=== PATIENT | female | born 1935 | race Caucasian/White ===

== ENCOUNTER 2017-06-06 16:42 | Observation (INO) | payer MEDICARE, OTHER ==
[~2017-06-06 16:42] MED LIST: ISOVUE-370 76%-LOCM 1 ML ONE
[2017-06-06] MEDS ORDERED: Lidocaine Viscous Sol 2% 15 ml UD Cup ONE (17:11)
[2017-06-06] MEDS ORDERED: Mag-Al 1200 mg/1200 mg/30 ML UDCUP ONE (17:11)
[2017-06-06] MEDS ORDERED: Famotidine 20 MG TAB ONE (17:11)
[2017-06-06] MEDS ORDERED: Ondansetron HCl/PF 4 MG/2 ML Vial ONE ×2 (17:13→18:15)
--- NOTE | 2017-06-06 17:57 | RAD ---
1 VIEW CHEST: Date: 06/06/17 HISTORY: Chest pain. COMPARISON: None. FINDINGS: Magnification of cardiac silhouette in part due to portable technique. Pulmonary vessels and hilum ar e normal. Costophrenic angles are clear. Lungs are hyperinflated. No masses or consolidation. No pneu mothorax or osseous abnormalities. There is rightward deviation of the trachea. The possibility of a mediastinal mass cannot be excluded . IMPRESSION: Rightward deviation of the trachea. The possibility of a mediastinal mass cannot be excluded. [facility] chest CT is recommended. . POS: [facility]
[2017-06-06] MEDS ORDERED: Nitroglycerin 2% Ointment 1 INCH/1 GM Packet ONE (18:15)
[2017-06-06 18:30] LABS: #Eosinphils 0.2 thou/uL (0.0-0.7); #Lymphocytes 0.9 thou/uL (1.20-3.40); #Monocytes 0.4 thou/uL (0.11-0.59); #Neutrophils 7.6 thou/uL (1.40-6.50); %Basophils 0.2 % (0.0-1.0); %Eosinophils 1.9 % (0.0-10.0); %Lymphocytes 9.5 % (21.0-51.0); %Monocytes 4.7 % (0.0-10.0); %Neutrophils 83.7 % (42.0-75.0); Hemoglobin 12.3 g/dL (12.0-16.0); Mean Corpuscular HGB CONC 33.9 g/dL (32.0-36.0); Mean Corpuscular Hemoglobin 31.5 pg (27.0-31.0); Mean Corpuscular Volume 92.7 fl (81.0-99.0); Mean Platelet Volume 6.2 fL (7.4-10.4); Platelet Count 208 thou/uL (130-400); White Blood Cell (WBC) Count 9.1 thou/uL (4.8-10.8)
[2017-06-06 18:37] LABS: INR-International Normal Ratio 1.6; PTT 30.1 SEC (22.9-36.1); Prothrombin Time 19.5 SEC (12.0-14.7)
[2017-06-06 18:46] LABS: ALT (SGPT) 20 U/L (8-55); AST (SGOT) 25 U/L (5-34); Albumin 4.1 g/dL (3.4-4.8); Alkaline Phosphatase 66 U/L (40-150); Anion Gap 14 mmol/L (10-20); BUN (Urea Nitrogen) 28 mg/dL (9.8-20.1); Bilirubin, Total 0.6 mg/dL (0.2-1.2); CK (CPK) 48 U/L (29-168); Calc. Creatinine Clearance 0 mL/min (70-130); Calcium 9.9 mg/dL (7.8-10.44); Carbon Dioxide 28 mmol/L (23-31); Chloride 101 mmol/L (98-107); Estimated GFR-MDRD 58; Globulin 2.8 g/dL (2.4-3.5); Glucose 133 mg/dL (83-110); Lipase 343 U/L (8-78); Potassium 4.2 mmol/L (3.5-5.1); Protein, Total 6.9 g/dL (6.0-8.3); Sodium 139 mmol/L (136-145)
[2017-06-06 18:49] LABS: CKMB 1.8 ng/mL (0-6.6); Troponin I Less than 0.010 ng/mL (< 0.028)
[2017-06-06] MEDS ORDERED: Promethazine HCl 25 MG/ML VIAL SLOW IVP PRN (21:22)
[2017-06-06] MEDS ORDERED: Sodium Chloride 0.9% 1,000 ML IV SCH (21:30)
[2017-06-06] MEDS ORDERED: Ondansetron HCl/PF 4 MG/2 ML Vial IVP PRN (21:56)
[2017-06-06] MEDS ORDERED: Ondansetron ODT 8 MG TAB SL PRN (21:56)
[2017-06-06] MEDS ORDERED: Morphine 10 MG/ML CARPUJECT SLOW IVP PRN (22:41)
--- NOTE | 2017-06-06 23:17 | CT ---
CHEST CT WITH CONTRAST ABDOMEN CT WITH CONTRAST PELVIC CT WITH CONTRAST: Date: 06/06/17 HISTORY: Pancreatitis. Rightward deviation of the trachea. COMPARISON: None. TECHNIQUE: Chest, abdomen, and pelvis CT are performed with IV contrast. Coronal reformatted images are submitte d for interpretation. FINDINGS: CHEST CT: There is no mediastinal mass, lymphadenopathy, or hematoma. Heart size is within normal limits. No pe ricardial effusion. The thoracic aorta and abdominal aorta have normal caliber. No periaortic fat str anding. The thoracic esophagus is air-filled and distended. There is evidence of oral contrast in the mid to distal thoracic esophagus which may be due to reflux. Emphysematous changes in the lung apices. Right upper lobe is smaller than the contralateral upper lo be. There are linear opacities in the right lower lobe, which may represent atelectasis or scar. No s uspicious masses or consolidation. Small left-sided pleural effusion. No pneumothorax. 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 ABDOMEN/PELVIS CT: Dilatation of the intra and extrahepatic biliary system due to surgically absent gallbladder. Intra a nd extrahepatic portal vein is patent. Limited evaluation of the abdominal structures due to patient motion. The liver, spleen, and adrenal glands have appropriate enhancement. There is appropriate enhancement of the kidneys. No evidence of peripancreatic inflammatory change. No gastrohepatic, retrocrural, or periportal lymphadenopathy. No mesenteric mass, lymphadenopathy, free air, or free fluid. Symmetric enhancement of the kidneys. No definite obstructive uropathy. Gastric mucosa, duodenum, and small bowel loops are unremarkable. Note, the duodenum does not appear to cross midline. Congenital variant is favored. The cecal apex appears to be in the right lower quad rant. Suggestion of an air-filled appendix. No evidence of small bowel obstruction. Copious amount of fecal material throughout the colon. Correlate for constipation. There is diverticulosis in the sigm oid colon. No becca evidence of diverticulitis. Significant fecal material in the rectum. There is mi ld perirectal edema. Correlate for stercoral colitis. Urinary bladder is unremarkable. Indeterminate compression fracture at the T11 level. There does appear to be some paraspinal hematoma . Leftward curvature of the lumbar spine. IMPRESSION: 1. Significant constipation. Correlate for stercoral colitis. 2. 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 3. Chronic changes in the right lung base. 4. Indeterminate, likely subacute compression fracture at the T11 level. 5. No evidence of a thoracic or abdominal aortic dissection. Results of study discussed with Dr. Ewing on 06/06/17 at 2305 hours. CODE CR. POS: [facility]
[2017-06-07] MEDS ORDERED: Mag-Al 1200 mg/1200 mg/30 ML UDCUP PO PRN (00:28)
[2017-06-07] MEDS ORDERED: Docusate 100 MG CAP PO PRN (00:28)
[2017-06-07] MEDS ORDERED: Milk Of Magnesia 30 ML UDCUP PO PRN (00:28)
[2017-06-07] MEDS ORDERED: Bisacodyl 10 MG SUPP PR ONE (00:28)
[2017-06-07] MEDS ORDERED: Senokot 8.6 MG TAB PO SCH (00:30)
[2017-06-07 01:15] LABS: Troponin I Less than 0.010 ng/mL (< 0.028)
--- NOTE | 2017-06-07 01:16 | HP-2 ---
DATE OF ADMISSION: 06/06/2017. CODE STATUS: FULL. PRIMARY CARE PHYSICIAN: Randolph earl. ATTENDING: Betsy Lester MD RESIDENT: Dr. Kevin Whitten. HISTORIAN: Patient. CHIEF COMPLAINT: Chest pain. HISTORY OF PRESENT ILLNESS: This is a pleasant 82-year-old female with a past medical history of atrial fibrillation, on Xarelto and scoliosis who presents with chest pain described as a horizontal band-like pressure across her left and right chest. She also describes it as tightness in that band-like pattern and this started earlier today at noon when she was eating lunch. She says that usually she gets scoliosis pain that is just on the right chest, but this pain was different and was worse as it radiated across her chest to her back. When she got to the ER, she was given a nitroglycerin patch and aspirin, which she said helped her pain. She also endorses nausea, vomiting, some midepigastric pain, and shortness of breath. In ER, she received 324 mg of aspirin and a nitroglycerin patch. PAST MEDICAL HISTORY: 1. Scoliosis. 2. Atrial fibrillation. 3. Hypothyroidism. 4. Benign tremor. 5. Hypertension. 6. Hyperlipidemia. PAST SURGICAL HISTORY: 1. Cautery for varicose veins. 2. Hysterectomy. 3. Tonsillectomy. ALLERGIES: PENICILLIN. MEDICATIONS: 1. Lipitor 10 mg daily. 2. Synthroid 25 mcg daily. 3. Xarelto 20 mg daily. 4. Aspirin half a tab of 81 mg daily. 5. Ramipril 2.5 mg daily. 6. Propranolol 40 mg t.i.d. 7. Myrbetriq. 8. Colace p.r.n. 9. Calcium. 10. Biotin. 11. Tramadol. FAMILY HISTORY: None. SOCIAL HISTORY: Denies tobacco, alcohol, or drug use. REVIEW OF SYSTEMS: General: Denies fevers, chills. HEENT: Denies vision changes. Nasal congestion. Respiratory: Denies cough, congestion. Endorses shortness of breath. Cardiovascular: Endorses chest pain/pressure. Denies palpitations or edema. Gastrointestinal: Endorses nausea, vomiting. Endorses midepigastric pain. Genitourinary: Denies incontinence, dysuria. Musculoskeletal: Endorses musculoskeletal pain across her chest. Neurologic: Denies weakness, numbness. Psychiatric: Denies anxiety, depression. PHYSICAL EXAMINATION: VITAL SIGNS: Blood pressure 124 to 162/59 to 91, pulse 61-75, respiratory rate 14-17, T-max 98.2, pulse ox 99% on room air, current weight 44 kilos. GENERAL: Alert, oriented x4, no apparent distress, thin, appropriately interactive. HEENT: PERRLA. EOMI. Nasal mucosa and oropharynx within normal limits. NECK: Supple. No lymphadenopathy, thyromegaly, or bruits. CARDIOVASCULAR: Regular rate and rhythm. No murmurs, rubs, or gallops. 2+ pedal pulses bilaterally. RESPIRATORY: Normal effort. No retractions. Clear to auscultation bilaterally. SKIN: Warm and dry. ABDOMEN: Soft. Midepigastric and left upper quadrant tenderness. Positive bowel sounds in all 4 quadrants. No masses or distention. EXTREMITIES: No clubbing, cyanosis, or edema. MUSCULOSKELETAL: Structurally within normal limits. Tone within normal limits. NEUROLOGIC: No focal deficits. Cranial nerves II-XII intact. GCS 15. PSYCHIATRIC: Appropriate. LABORATORY DATA: CBC: 9.1, 12.3, 36.2, 208. CMP: 139, 4.2, 101, 28, 28, 0.93, 133. AST, ALT, alkaline phosphatase: 25, 20, 66. Calcium, total protein, albumin: 9.9, 6.9, 4.1. T bili is 0.6. Troponin I is less than 0.010. CK-MB 1.8, CK 48. Lipase is 343. Prothrombin is 19.5. EKG: NSR. Chest x-ray: Rightward deviation of the trachea. Possible mediastinal mass. ASSESSMENT AND PLAN: This is an 82-year-old female with a past medical history of atrial fibrillation and scoliosis, who presents with atypical chest pain, nausea, vomiting, and mid epigastric pain, who was found to have an elevated lipase of 343 and admitted for suspected pancreatitis, possible mediastinal mass , and atypical chest pain. 1. Suspected pancreatitis. This is likely the cause of her pain as she described her pain as a band-like pressure across her chest in the mid epigastric region that radiated to her back and with a lipase of 343 and also with a history of nausea and vomiting. The patient was admitted to inpatient tele and was made n.p.o., and we provided her with IV fluids at 125 mL per hour of normal saline. We ordered a CT abdomen as well as a CT chest and will follow up on those results. We will provide pain control with morphine 2 mg q.2 hours p.r.n. and we will keep the patient n.p.o. at this time to provide bowel rest. 2. Atypical chest pain. This chest pain seems to be due to pancreatitis; however, we will trend her troponins. She had a heart score of 3 and thus making her not a candidate for stress in the morning. 3. Possible mediastinal neck mass. A chest CT has been ordered with contrast to further evaluate, which may be worsening the pain. 4. Atrial fibrillation. We will restart her Xarelto and propranolol. 5. Scoliosis. We will provide pain control as needed for her pain. 6. Hypothyroidism. We will continue her home medications and check a TSH. DISPOSITION AND LENGTH OF HOSPITAL STAY: 2-3 days. Symptomatic medications will be provided. History and physical exam as well as management discussed with Dr. Lester. JERRY
[2017-06-07 03:53] LABS: #Eosinphils 0.1 thou/uL (0.0-0.7); #Monocytes 0.4 thou/uL (0.11-0.59); #Neutrophils 3.2 thou/uL (1.40-6.50); %Basophils 0.8 % (0.0-1.0); %Eosinophils 1.5 % (0.0-10.0); %Lymphocytes 21.3 % (21.0-51.0); %Monocytes 7.6 % (0.0-10.0); %Neutrophils 68.9 % (42.0-75.0); Mean Corpuscular Hemoglobin 31.3 pg (27.0-31.0); Mean Platelet Volume 6.1 fL (7.4-10.4); Platelet Count 175 thou/uL (130-400); RBC Distribution Width 11.9 % (11.5-14.5); Red Blood Cell (RBC) Count 3.18 mill/uL (4.20-5.40); White Blood Cell (WBC) Count 4.6 thou/uL (4.8-10.8)
[2017-06-07 04:14] LABS: Anion Gap 10 mmol/L (10-20); BUN (Urea Nitrogen) 25 mg/dL (9.8-20.1); Calc. Creatinine Clearance 0 mL/min (70-130); Calcium 8.7 mg/dL (7.8-10.44); Carbon Dioxide 27 mmol/L (23-31); Chloride 103 mmol/L (98-107); Estimated GFR-MDRD 79; Glucose 92 mg/dL (83-110); Potassium 4.2 mmol/L (3.5-5.1); Sodium 136 mmol/L (136-145)
--- NOTE | 2017-06-07 08:50 | PDOC.FM ---
- Subjective Subjective: Patient doing well this morning. She rested overnight with no acute events. Vital signs stable, patient is afebrile. Abdominal/Chest pain has resolved. - Objective MAR Reviewed: Yes Result Diagrams: 06/07/17 03:39 06/07/17 03:39 <Tate Griffin - Last Filed: 06/07/17 08:47> - Objective Result Diagrams: 06/07/17 03:39 06/07/17 03:39 <Andi العلي - Last Filed: 06/07/17 11:29> Phys Exam - Physical Examination Constitutional: NAD HEENT: moist MMs Neck: supple, full ROM Respiratory: no wheezing, no rales Cardiovascular: RRR, no significant murmur Gastrointestinal: soft, non-tender, no distention Neurological: moves all 4 limbs Psychiatric: normal affect, A&O x 3 Skin: no rash <Tate Griffin - Last Filed: 06/07/17 08:47> Dx/Plan (1) Pancreatitis Code(s): K85.90 - ACUTE PANCREATITIS WITHOUT NECROSIS OR INFECTION, UNSP Status: Suspected QualifierTitle: Chronicity: acute Plan: s/p cholecystectomy Lipase of 343 on admission No prior history of pancreatitis Pain has resolved and she deneis N/V CT not consistent with pancreatitis Remain NPO for now Morphine for pain control (2) Atypical chest pain Code(s): R07.89 - OTHER CHEST PAIN Status: Acute Plan: Chief complaint is vague but concerning for cardiac etiology Stress test this AM (3) Atrial fibrillation Code(s): I48.91 - UNSPECIFIED ATRIAL FIBRILLATION Status: Acute Plan: Continue Xarelto and Propranolol (4) Hypertension Code(s): I10 - ESSENTIAL (PRIMARY) HYPERTENSION Status: Chronic Plan: Continue Ramipril (5) Hypothyroidism Code(s): E03.9 - HYPOTHYROIDISM, UNSPECIFIED Status: Chronic Plan: Continue home dose of synthroid (6) Hyperlipidemia Code(s): E78.5 - HYPERLIPIDEMIA, UNSPECIFIED Status: Chronic Plan: Continue lipitor (7) GERD (gastroesophageal reflux disease) Code(s): K21.9 - GASTRO-ESOPHAGEAL REFLUX DISEASE WITHOUT ESOPHAGITIS Status: Acute Plan: s/p GI cocktail x 1 Protonix (8) Scoliosis Status: Chronic - Plan Plan: Plan: -r/o cardiac etiology with stress test this AM -CT does not correlate with pancreatitis -continue bowel regimen for constipation found on imaging -NPO and morphine for possible pancreatitis <Tate Griffin - Last Filed: 06/07/17 08:47> Attending Addendum - Attending Addendum I personally evaluated the patient and discussed the management with Dr. Griffin. I agree with the History, Examination, Assessment and Plan documented above with any addition or exceptions noted below. <Andi العلي - Last Filed: 06/07/17 11:29>
[2017-06-07] MEDS ORDERED: Famotidine 20 MG TAB ONE (09:36)
--- NOTE | 2017-06-07 11:38 | PDOC.EVN ---
Event Note - Event Note Event Note: Attending H&P I personally evaluated the patient and discussed the management with Dr. Griffin. I have reviewed the written H&P and it is repeated by me. I agree with the History, Examination, Assessment and Plan documented above with any addition or exceptions noted below. Cardiac workup so far is negative. Patietn is currently asymptomatic. Stress test planned. Possible discharge.
--- NOTE | 2017-06-07 14:46 | NM ---
CARDIAC SPECT: CLINICAL HISTORY: 82-year-old female with chest pain, atrial fibrillation, hypertension, and hypercholesterolemia. TECHNIQUE: A myocardial perfusion scan was performed using the single isotope one day protocol with technetium-9 9m sestamibi. 9 mCi were injected intravenously for the rest exam followed by 31 mCi for the stress e xam. Pharmacologic stress with Lexiscan was monitored and interpreted by Dr. Mascorro. FINDINGS: Homogeneous tracer distribution is seen in the myocardial segments on stress and rest images without fixed or reversible defects. GATED SPECT LVEF: 57%. WALL MOTION EXAM: Normal. IMPRESSION: Normal myocardial perfusion scan. POS: [facility]
[2017-06-07 14:56] VITALS: BP 143/62; TEMP 97.5
[2017-06-07 14:58] VITALS: BMI 18.8
[2017-06-07] MEDS: Sodium Chloride 0.9% 1,000 ML IV SCH (15:31)
[2017-06-07] MEDS ORDERED: Regadenoson 0.4 MG/5 ML SYRINGE ONE (16:44)
--- NOTE | 2017-06-08 13:25 | DIS-2 ---
DATE OF ADMISSION: 06/06/2017 DATE OF DISCHARGE: 06/07/2017 RESIDENT: Dr. Tate Griffin ADMITTING ATTENDING: Dr. Betsy Lester DISCHARGE ATTENDING: Dr. Andi العلي CONSULTS: None. PROCEDURES: 1. Chest x-ray showing a rightward deviation of the trachea, but otherwise nonemergent. 2. CT abdomen and pelvis showing significant constipation. 3. Nuclear Medicine cardiac stress test showing normal myocardial perfusion with ejection fraction 5 7%, normal wall motion. PRIMARY DIAGNOSES: 1. Atypical chest pain. 2. Constipation. SECONDARY DIAGNOSES: 1. Atrial fibrillation. 2. Scoliosis. 3. Hypertension. 4. Hypothyroidism. 5. Hyperlipidemia. 6. Gastroesophageal reflux disease. DISCHARGE MEDICATIONS: 1. Colace 100 mg p.o. b.i.d. p.r.n. 2. Magnesium 3 mL p.o. daily. 3. Myrbetriq 2 mg p.o. daily. 4. Synthroid 25 mcg p.o. daily. 5. Calcium carbonate 600 mg p.o. b.i.d. 6. Biotin 500 mg p.o. daily. 7. Xarelto 20 mg p.o. daily. 8. Propranolol 40 mg p.o. t.i.d. 9. Aspirin 81 mg p.o. daily. 10. Tylenol #3, 1-2 tablets p.o. q.6h. p.r.n. for pain. 11. Tramadol 50 mg p.o. q.i.d. p.r.n. 12. Altace 2.5 mg p.o. daily. 13. Atorvastatin 10 mg p.o. at bedtime. DISCONTINUED MEDICATIONS: Morphine. HISTORY OF PRESENT ILLNESS/HOSPITAL COURSE: An 82-year-old female with history of atrial fibrillatio n on Xarelto, who presents with a band-like pain across her chest, radiating bilaterally. She says t his pain is different than her scoliosis type pain that she typically gets. The pain was only presen t for a couple days before presenting to the ER. The patient received a nitroglycerin patch and aspi rin upon presentation in the ER which relieved her pain. She has had accompanying nausea, vomiting, and epigastric pain and shortness of breath. The patient was admitted. All imaging was negative, see above. She underwent a cardiac stress test which was negative. Vital signs were normal throughout hospital stay. The patient's CBC and BMP wer e all normal during admission. Troponins were negative x3. Her EKG was normal. Her pain did not re cur while in hospital. Therefore, pain is likely due to musculoskeletal abnormalities. The patient was back to her normal state of health upon discharge. She will follow up in the outpatient setting with Cardiology. DISPOSITION: The patient is stable. DISCHARGE INSTRUCTIONS: 1. Location: Home. 2. Diet: Heart healthy. 2. Activity: As tolerated. 3. Followup: Follow up with primary care physician in 7-10 days.
--- NOTE | 2017-06-10 12:52 | STRESS ---
Acquisition Time: 2017-06-07 13:16:08 Total Exercise Time: 00:01:00 Test Indications: CHEST PAIN Medications: Protocol: LEXISCAN Max HR: 113 BPM 82% of Pred: 137 BPM Max BP: 152/078 mmHG Max Work Load: 1.0 METS RESTING ECG: COMPLETE RIGHT BUNDLE BRANCH BLOCK SYMPTOMS: MILD DYSPNEA NORMAL BP RESPONSE FOR LEXISCAN ECG STRESS: NO SIGNIFICANT CHANGES INTERPRETATION: INDETERMINATE ECG IN VIEW OF RIGHT BUNDLE BRANCH BLOCK/AWAIT NUCLEAR IMAGES FOR DEFINITIVE DIAGNOSIS Confirmed by DR. Shiraz YEPEZ ([id number]), editor in chief newspaper JACOBO CRUZ ([id number]) on 06/10/2017 12:51:45 PM Referred By: MD Lucrecia JERRY Confirmed By:DR. Shiraz YEPEZ
--- NOTE | 2017-06-12 17:25 | EKG ---
Test Reason : Blood Pressure : / mmHG Vent. Rate : 059 BPM Atrial Rate : 277 BPM P-R Int : 000 ms QRS Dur : 102 ms QT Int : 422 ms P-R-T Axes : 000 -63 036 degrees QTc Int : 417 ms Normal sinus rhythm Incomplete right bundle branch block Low voltage Abnormal ECG Confirmed by AMY JOHNSON, ARIN Newman ([id number]), metropolitan editor JEFFREY VIDES ([id number]) on 06/12/2017 5:24:55 PM Referred By: AMY Confirmed By:ARIN REYES MD
== END 2017-06-07 16:48 | disposition home or self-care (01) ==
LOC: ERS 16:42 → ERHOLD 19:15 → 2SW 06-07 14:36
PROVIDERS: ADMIT Family Medicine; ATTEND Family Medicine
DX: R07.89 Other chest pain (principal); K59.00 Constipation, unspecified; I48.91 Unspecified atrial fibrillation; M41.9 Scoliosis, unspecified; I10 Essential (primary) hypertension; E03.9 Hypothyroidism, unspecified; E78.5 Hyperlipidemia, unspecified; K21.9 Gastro-esophageal reflux disease without esophagitis; Z88.0 Allergy status to penicillin; Z79.01 Long term (current) use of anticoagulants; Z79.899 Other long term (current) drug therapy; Z90.710 Acquired absence of both cervix and uterus; Z98.890 Other specified postprocedural states
CPT/HCPCS: 71045; 71260; 74177; 78452; 80048; 82550; 82553; 83690; 84484 ×3; 85025; 85610; 85730; 93005; 93017; 96374; 96376; 99285; A9500; G0378 ×2; 36415; 80053; 84443; J2405; J2785

== ENCOUNTER 2018-03-10 13:00 | Emergency (ER) | payer MEDICARE, OTHER ==
[2018-03-10 13:54] LABS: #Eosinphils 0.1 thou/uL (0.0-0.7); #Lymphocytes 0.6 thou/uL (1.20-3.40); #Monocytes 0.5 thou/uL (0.11-0.59); #Neutrophils 5.5 thou/uL (1.40-6.50); %Basophils 0.4 % (0.0-1.0); %Eosinophils 0.8 % (0.0-10.0); %Lymphocytes 9.1 % (21.0-51.0); %Monocytes 7.2 % (0.0-10.0); %Neutrophils 82.5 % (42.0-75.0); Hemoglobin 13.1 g/dL (12.0-16.0); Mean Corpuscular HGB CONC 34.1 g/dL (32.0-36.0); Mean Corpuscular Hemoglobin 31.2 pg (27.0-31.0); Mean Corpuscular Volume 91.6 fL (78.0-98.0); Mean Platelet Volume 6.3 fL (7.4-10.4); Platelet Count 271 thou/uL (130-400); RBC Distribution Width 11.3 % (11.5-14.5); Red Blood Cell (RBC) Count 4.21 mill/uL (4.20-5.40); White Blood Cell (WBC) Count 6.7 thou/uL (4.8-10.8)
[2018-03-10 14:17] LABS: ALT (SGPT) 15 U/L (8-55); AST (SGOT) 21 U/L (5-34); Albumin 3.8 g/dL (3.4-4.8); Alkaline Phosphatase 63 U/L (40-150); Anion Gap 13 mmol/L (10-20); BUN (Urea Nitrogen) 23 mg/dL (9.8-20.1); Bilirubin, Total 1.7 mg/dL (0.2-1.2); Calc. Creatinine Clearance 0 mL/min (70-130); Calcium 9.5 mg/dL (7.8-10.44); Carbon Dioxide 29 mmol/L (23-31); Chloride 98 mmol/L (98-107); Estimated GFR-MDRD 74; Globulin 2.9 g/dL (2.4-3.5); Glucose 82 mg/dL (83-110); Lipase 22 U/L (8-78); Potassium 3.9 mmol/L (3.5-5.1); Protein, Total 6.7 g/dL (6.0-8.3); Sodium 136 mmol/L (136-145)
[2018-03-10 14:18] LABS: Troponin I Less than 0.010 ng/mL (< 0.028)
--- NOTE | 2018-03-10 14:30 | RAD ---
PORTABLE CHEST 1 VIEW: Date: 03/10/18 Time: 1251 hours HISTORY: Weakness, loss of appetite, altered mental status. FINDINGS: Comparison made with exam of 06/06/17. The heart size is normal. The aorta is tortuous. The lungs are expanded without lobar consolidation, pneumothoraces, or pleural effusions. IMPRESSION: No radiographic evidence of acute cardiopulmonary process. POS: [facility]
--- NOTE | 2018-03-10 14:36 | CT ---
CT OF THE BRAIN WITHOUT CONTRAST: Date: 03/10/18 COMPARISON: None. HISTORY: Generalized weakness and altered mental status. TECHNIQUE: Multiple contiguous axial images were obtained in a CT of the brain without contrast. FINDINGS: There are scattered hypodensities in the subcortical and periventricular white matter, likely seconda ry to small vessel ischemic disease. No large confluent infarction is seen. There is no evidence of h ydrocephalus, intracranial hemorrhage, or extra-axial fluid collection. The calvarium and overlying soft tissues are unremarkable. The visualized paranasal sinuses and masto id air cells are well aerated. IMPRESSION: No evidence of acute intracranial abnormality. POS: [facility]
[2018-03-10 15:05] LABS: Bilirubin Negative (Negative); Blood, Urine Negative (Negative); Clarity CLEAR (Clear); Glucose, Urine (Dipstick) Negative (Negative); Leukocyte Trace (Negative); Nitrite Negative (Negative); Protein, Urine (Dipstick) Negative (Neg-Trace); Specific Gravity, Urine 1.013 (1.002-1.036); Urobilinogen 0.2 mg/dL (0.2-1.0)
[2018-03-10 15:07] LABS: Bacteria/HPF None Seen HPF (None Seen); Hyaline Casts/LPF 0-3 HYALINE CAST LPF (0-3 Hyaline); Pathc Cast-AUWi Flag 0.29 (0-2.49); Squamous Epithelial 0-3 HPF (0-3); WBC/HPF 0-3 HPF (0-3)
--- NOTE | 2018-03-12 23:08 | EKG ---
Test Reason : Blood Pressure : / mmHG Vent. Rate : 085 BPM Atrial Rate : 085 BPM P-R Int : 120 ms QRS Dur : 128 ms QT Int : 384 ms P-R-T Axes : 000 -51 064 degrees QTc Int : 456 ms Normal sinus rhythm Left axis deviation Non-specific intra-ventricular conduction block Abnormal ECG Confirmed by MOODY LUNA ([id number]), script editor KATIA SYED ([id number]) on 03/12/2018 11:07:28 PM Referred By: Confirmed By:MOODY LUNA
== END 2018-03-10 15:32 | disposition home or self-care (01) ==
LOC: ERS 13:00
DX: E86.0 Dehydration (principal); R53.1 Weakness; I48.91 Unspecified atrial fibrillation; Z79.899 Other long term (current) drug therapy; Z79.01 Long term (current) use of anticoagulants
CPT/HCPCS: 36415; 70450; 71045; 80053; 81003; 81015; 83605; 83690; 84484; 85025; 87086; 93005; 96360

== ENCOUNTER 2018-03-29 11:27 | Emergency (ER) | payer MEDICARE, OTHER ==
[2018-03-29 11:55] LABS: Bilirubin Negative (Negative); Blood, Urine Negative (Negative); Clarity CLEAR (Clear); Glucose, Urine (Dipstick) Negative (Negative); Leukocyte Negative (Negative); Nitrite Negative (Negative); Protein, Urine (Dipstick) Negative (Neg-Trace); Specific Gravity, Urine 1.011 (1.002-1.036)
--- NOTE | 2018-03-29 12:53 | RAD ---
UPRIGHT PORTABLE CHEST ONE VIEW: History: 82-year-old female with history of fall at home, chest pain not improving. FINDINGS: Heterogeneous bony demineralization. Minimal rotation to the right. Arthrosis changes of both shoulde rs with a narrow right acromial humeral space, evidence for chronic rotator cuff injury. No confluent pneumonia, overt edema, or pleural effusion. No pneumothorax. IMPRESSION: No significant acute intrathoracic disease. Rotation to the right. Other findings as above. POS: [facility]
--- NOTE | 2018-03-29 12:55 | RAD ---
RIGHT SHOULDER 3 VIEWS: HISTORY: An 82-year-old female with a history of right shoulder pain following an injury from a fall at home. FINDINGS: Marked AC joint arthrosis changes with an undersurface spur of the lateral acromion with markedly karley rowed acromial humeral space. Ossification focus in the inferior axillary pouch region, evidence of synovial osteochondroma or intraarticular body. No acute fracture or dislocation. IMPRESSION: No acute fracture or dislocation. 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 No acute process. POS: [facility]
[2018-03-29 12:59] LABS: #Eosinphils 0.1 thou/uL (0.0-0.7); #Lymphocytes 0.5 thou/uL (1.20-3.40); #Monocytes 0.6 thou/uL (0.11-0.59); #Neutrophils 9.1 thou/uL (1.40-6.50); %Eosinophils 1.4 % (0.0-10.0); %Lymphocytes 4.4 % (21.0-51.0); %Monocytes 5.8 % (0.0-10.0); %Neutrophils 88.3 % (42.0-75.0); Hemoglobin 12.5 g/dL (12.0-16.0); Mean Corpuscular HGB CONC 31.9 g/dL (32.0-36.0); Mean Corpuscular Hemoglobin 29.8 pg (27.0-31.0); Mean Corpuscular Volume 93.4 fL (78.0-98.0); Mean Platelet Volume 6.4 fL (7.4-10.4); Platelet Count 241 thou/uL (130-400); RBC Distribution Width 11.5 % (11.5-14.5); Red Blood Cell (RBC) Count 4.19 mill/uL (4.20-5.40); White Blood Cell (WBC) Count 10.3 thou/uL (4.8-10.8)
[2018-03-29 13:20] LABS: ALT (SGPT) 16 U/L (8-55); AST (SGOT) 18 U/L (5-34); Albumin 3.8 g/dL (3.4-4.8); Alkaline Phosphatase 76 U/L (40-150); Anion Gap 11 mmol/L (10-20); BUN (Urea Nitrogen) 19 mg/dL (9.8-20.1); Bilirubin, Total 1.3 mg/dL (0.2-1.2); Calc. Creatinine Clearance 0 mL/min (70-130); Calcium 9.4 mg/dL (7.8-10.44); Carbon Dioxide 27 mmol/L (23-31); Chloride 102 mmol/L (98-107); Estimated GFR-MDRD 73; Globulin 2.5 g/dL (2.4-3.5); Glucose 110 mg/dL (83-110); Protein, Total 6.3 g/dL (6.0-8.3); Sodium 136 mmol/L (136-145)
[2018-03-29 13:24] LABS: Troponin I Less than 0.010 ng/mL (< 0.028)
[2018-03-29] MEDS ORDERED: HYDROcodone/Acetaminophen 5/325 mg Tablet ONE (13:58)
== END 2018-03-29 15:10 | disposition home or self-care (01) ==
LOC: ERS 11:27
DX: R07.89 Other chest pain (principal); I48.91 Unspecified atrial fibrillation; G20 Parkinson's disease; Z74.09 Other reduced mobility; Z79.891 Long term (current) use of opiate analgesic; Z79.899 Other long term (current) drug therapy; Z79.01 Long term (current) use of anticoagulants; W19.XXXA Unspecified fall, initial encounter
CPT/HCPCS: 36415; 51701; 71045; 80053; 81003; 84484; 85025; 93005; A4353

== ENCOUNTER 2018-05-03 19:31 | Emergency (ER) | payer MEDICARE, OTHER ==
[2018-05-03] MEDS ORDERED: Lidocaine 4% Cream 5 GM TUBE w/ Tegaderm ONE (19:54)
[2018-05-03] MEDS ORDERED: Adacel (T-DAP) 0.5 ML SYRINGE ONE (20:00)
--- NOTE | 2018-05-03 20:37 | CT ---
CT BRAIN WITHOUT CONTRAST: HISTORY: Unwitnessed fall at home with head injury. COMPARISON: None. TECHNIQUE: Multiple contiguous axial images were obtained in a CT of the brain without contrast. FINDINGS: There are scattered hypodensities in the subcortical and periventricular white matter, likely seconda ry to small vessel ischemic disease. No large confluent infarction is seen. There is no evidence of hydrocephalus, intracranial hemorrhage, or extraaxial fluid collection. The calvarium and overlying soft tissues are unremarkable. The visualized paranasal sinuses and mast oid air cells are well aerated. IMPRESSION: No evidence of acute intracranial abnormality. POS: [facility]
--- NOTE | 2018-05-03 20:39 | CT ---
CT CERVICAL SPINE WITHOUT CONTRAST: HISTORY: Fall with head trauma and neck pain. COMPARISON: None. TECHNIQUE: Multiple contiguous axial images were obtained in a CT of the cervical spine without contrast. Sagit jacklyn and coronal reformats were performed. FINDINGS: The vertebral bodies demonstrate normal height and alignment without fracture or subluxation. There is narrowing of the C6-C7 intervertebral disk secondary to degenerative changes. No prevertebral sof t tissue swelling is seen. The posterior facets are well aligned. Normal alignment of the skull base with the cervical spine is seen. IMPRESSION: Degenerative changes of the cervical spine without acute osseous abnormality. POS: [facility]
== END 2018-05-03 21:02 | disposition home or self-care (01) ==
LOC: ERS 19:31
DX: S01.01XA Laceration without foreign body of scalp, initial encounter (principal); Z23 Encounter for immunization; I48.91 Unspecified atrial fibrillation; G20 Parkinson's disease; Z79.899 Other long term (current) drug therapy; Z79.01 Long term (current) use of anticoagulants; W19.XXXA Unspecified fall, initial encounter
CPT/HCPCS: 12001; 70450; 72125; 90471; 90715